=== PATIENT | female | born 1935 | race African-American/Black ===

== ENCOUNTER 2018-05-27 06:05 | Day surgery (SDC) | payer MEDICARE, BC ==
[~2018-05-27] VITALS: Ht 166.4 cm; Wt 52.2 kg
[~2018-05-27 06:05] MED LIST: MULT-1116 PO; [UNRECOGNIZED DRUG - OTHER] PO
[2018-05-27] MEDS ORDERED: BALANCED SALT IRRIG SOLN COMB1 500ML OP SCH (06:30)
[2018-05-27] MEDS ORDERED: TROPICAMIDE 1% OPHTH DROPS 15ML LEFTEYE SCH (07:10)
[2018-05-27] MEDS ORDERED: PHENYLEPHRINE HCL 10% OPHTH DROPS 5ML LEFTEYE SCH (07:10)
[2018-05-27] MEDS ORDERED: CYCLOPENTOLATE HCL 1% OPHTH DROPS 2ML LEFTEYE SCH (07:10)
[2018-05-27] MEDS ORDERED: LACTATED RINGERS 1,000 ML IV SCH (07:45)
[2018-05-27] MEDS ORDERED: FENTANYL CITRATE/PF 50MCG/ML 2ML VIAL ONE (09:07)
[2018-05-27] MEDS ORDERED: MIDAZOLAM HCL 2 MG/2 ML VIAL ONE (09:07)
[2018-05-27] MEDS ORDERED: ONDANSETRON HCL 4MG/2ML VIAL ONE (09:07)
[2018-05-27] MEDS ORDERED: HYALURONATE SODIUM 14 MG/ML 0.85ML SYRINGE IO ONE (09:39)
[2018-05-27] MEDS ORDERED: LIDOCAINE HCL/PF 1% 10 MG/ML 5ML VIAL ONE (10:10)
[2018-05-27] MEDS ORDERED: PROPOFOL 200MG/20ML VIAL IV ONE (10:10)
[2018-05-27] MEDS ORDERED: TROPICAMIDE 1% OPHTH DROPS 15ML ONE (15:07)
[2018-05-27] MEDS ORDERED: LIDOCAINE HCL/PF 4% 40 MG/ML 5ML AMPUL ONE (15:07)
[2018-05-27] MEDS ORDERED: PREDNISOLONE ACETATE 1% OPHTH DROPS 1ML ONE (15:07)
[2018-05-27] MEDS ORDERED: CYCLOPENTOLATE HCL 1% OPHTH DROPS 2ML ONE (15:07)
[2018-05-27] MEDS ORDERED: PHENYLEPHRINE HCL 10% OPHTH DROPS 5ML ONE (15:07)
== END 2018-05-27 11:20 | disposition home or self-care (01) ==
LOC: OR 06:05
PROVIDERS: ATTEND Ophthalmology
DX: H25.012 Cortical age-related cataract, left eye (principal); Z96.642 Presence of left artificial hip joint
CPT/HCPCS: 66984; J2250; J2405; J3010; J3490; J7120; V2632; J2704

== ENCOUNTER 2018-08-20 16:02 | Emergency (ER) | payer MEDICARE, BC ==
[~2018-08-20] VITALS: Ht 165.1 cm; Wt 53.0 kg
[2018-08-20] MEDS ORDERED: IBUPROFEN 800MG TABLET PO ONE (17:15)
[2018-08-20 17:18] VITALS: BP 132/72
== END 2018-08-20 18:34 | disposition home or self-care (01) ==
LOC: ER 17:34
DX: S52.592A Other fractures of lower end of left radius, initial encounter for closed fracture (principal); S70.02XA Contusion of left hip, initial encounter; S70.01XA Contusion of right hip, initial encounter; W18.39XA Other fall on same level, initial encounter; Y93.89 Activity, other specified; Y92.89 Other specified places as the place of occurrence of the external cause; Y99.8 Other external cause status; Z98.890 Other specified postprocedural states; Z79.899 Other long term (current) drug therapy; Z96.651 Presence of right artificial knee joint
CPT/HCPCS: 29125; 73110; 73130; 73522; 99284